=== PATIENT | female | born 1955 | race Caucasian/White ===

== ENCOUNTER → 2017-04-26 | Outpatient (CLI) | payer BC | END | disposition home or self-care (01) | LOC: GMAJ 10:34 | PROVIDERS: ATTEND Family Medicine | DX: E78.00 Pure hypercholesterolemia, unspecified (principal); I10 Essential (primary) hypertension ==

== ENCOUNTER → 2017-08-31 | Outpatient (CLI) | payer BC ==
--- NOTE | 2017-09-01 17:45 | MRI ---
EXAM DESCRIPTION: Lumbar Spine w/o Contrast CLINICAL HISTORY: SPINAL STENOSIS COMPARISON: None Available. TECHNIQUE: Multiplanar multisequence MR imaging of the lumbar spine was performed without contrast FINDINGS: For purposes of this exam, it is assumed that there are five nonrib-bearing lumbar vertebral bodies. There is moderately severe left and moderate right L4-5 neural foraminal narrowing. There is moderate bilateral L5-S1 neural foraminal narrowing. There is moderate bilateral facet joint hypertrophy at L4-5. There is no evidence of acute fracture. The vertebral bodies are normal in configuration and signal. The conus medullaris and filum terminale and cauda equina appear unremarkable. There is no other significant stenosis. No spondylolisthesis or spondylolysis seen. IMPRESSION: No acute abnormalities. Stenoses as above. Electronically signed by: Eagle Petty 09/01/2017 5:44 PM [facility]
== END ==
LOC: MRI 14:24
PROVIDERS: ATTEND Family Medicine
DX: M48.061 Spinal stenosis, lumbar region without neurogenic claudication (principal)

== ENCOUNTER → 2018-05-30 | Outpatient (CLI) | payer BC | LOC: GMAJS 10:46 | PROVIDERS: ATTEND Physician Assistant | DX: R30.0 Dysuria (principal) ==

== ENCOUNTER → 2018-05-31 | Outpatient (CLI) | payer BC ==
--- NOTE | 2018-05-31 11:58 | US ---
EXAM DESCRIPTION: Pelvis Transvaginal CLINICAL HISTORY: 63 years Female, POSTMENOPAUSAL BLEEDING COMPARISON: None. TECHNIQUE: Multiple static transverse and longitudinal sonographic images of the pelvis were obtained transvaginally. FINDINGS: The uterus is anteverted in orientation. It measures 3.8 x 1.6 x 2.6 cm. The endometrial stripe measures 1.2 mm in thickness. Trace fluid is noted in the endometrial canal. A nabothian cyst is noted in the cervix anteriorly. Right ovary is not visualized. Left ovary measures 0.8 x 0.7 x 0.6 cm and appears normal. No evidence of free fluid. IMPRESSION: Trace fluid is noted in the endometrial canal. Otherwise normal sonographic appearance of the uterus and left ovary. Right ovary is not seen. Electronically signed by: Kareen Cochran MD 05/31/2018 11:56 AM CDT
== END ==
LOC: US 10:12
PROVIDERS: ATTEND Physician Assistant
DX: N95.0 Postmenopausal bleeding (principal)

== ENCOUNTER → 2018-11-07 | Outpatient (CLI) | payer BC | LOC: GMAJ 14:27 | PROVIDERS: ATTEND Family Medicine | DX: E55.9 Vitamin D deficiency, unspecified (principal) ==

== ENCOUNTER → 2019-04-22 | Outpatient (CLI) | payer MEDICARE, OTHER ==
--- NOTE | 2019-04-23 13:03 | MRI ---
EXAM DESCRIPTION: Thoracic Spine w/o Contrast: Magnetic Resonance Imaging. CLINICAL HISTORY: SPONDYLOSIS COMPARISON: None. TECHNIQUE: Multiplanar, multiple standard sequences, non contrast MRI, thoracic spine. FINDINGS: No significant disc desiccation or disc space loss at any level. No significant disc bulging. Canal is patent. No hypertrophic facet arthrosis. Bilateral neural foramina are patent. Circumscribed hyperintense T1 and T2 signal in the posterior superior T5 vertebral body consistent with a hemangioma. Similar appearing hemangioma on the left in the T3 vertebral body and anterior left in the T1 vertebral body. Conus terminates at L1. Cord with normal signal, no compression. Paravertebral soft tissues are unremarkable. Normal marrow signal in the remaining vertebral bodies and the posterior elements. Vertebral bodies are not compressed at any level. IMPRESSION: 1. Discs, disc spaces, canal diameter, foraminal diameter, ligaments and facet joints are unremarkable. 2. Normal marrow signal in the spinal elements and normal signal in the cord. Electronically signed by: Eagle Francis MD 04/23/2019 11:32 AM CDT
== END ==
LOC: MRI 13:51
PROVIDERS: ATTEND Anesthesiology Pain Medicine
DX: M47.814 Spondylosis without myelopathy or radiculopathy, thoracic region (principal)

== ENCOUNTER → 2020-01-12 | Outpatient (CLI) | payer MEDICARE, OTHER ==
--- NOTE | 2020-01-12 12:10 | MRI ---
EXAM DESCRIPTION: Lumbar Spine w/o Contrast : Magnetic Resonance Imaging. CLINICAL HISTORY: PAIN IN THORACIC SPINE COMPARISON: MRI scan lumbar spine without contrast August 2017. TECHNIQUE: Multiplanar, multiple standard sequences, non contrast MRI, lumbar spine. FINDINGS: L5-S1: The disc is well visualized on axial T2 series 501, image 3. Normal signal in the disc with disc space preserved. No posterior bulge or protrusion. Minimal hypertrophy of the flavum ligaments and unremarkable facet joints (canal elements. Canal is patent. Mild bilateral foraminal narrowing, more on the right. No interval change. L4-L5: Disc desiccation with disc space preserved and no bulging. Degenerative hypertrophy of the canal elements. Canal and right foramen patent. Moderate to severe narrowing of the left foramen. Stable since the prior study. L3-L4: Disc desiccation with disc space maintained. Canal elements unremarkable. Canal patent. Bilateral foramina are patent. No change from the prior study. L2-L3: Disc desiccation with minimal anterior bulging and anterior endplate ridging. No posterior bulging. Small endplate Schmorl's node superior L3. Canal elements unremarkable. Canal and foramina are patent. No interval change. L1-L2: Normal signal in the disc and disc space preserved. No bulging. Canal elements unremarkable. Canal and foramina are patent. Conus terminates just above the disc space. Stable since the prior study. T12-L1: Normal signal in the disc with disc space preserved. Canal elements are unremarkable. Canal and foramina are patent. No change from the prior study. No significant curvature. Paravertebral soft tissues negative.. Distal cord normal signal and caliber. Otherwise normal marrow signal in the remaining vertebral bodies and the posterior elements. Vertebral bodies are not compressed at any level. IMPRESSION: 1. Desiccation of several discs with degenerative hypertrophy of the canal elements. Endplate changes at several levels. No disc herniation or significant bulging. No canal or foraminal stenosis. 2. Disc desiccation L2-L3 with endplate changes. Canal and foramina are patent. No interval change from the prior study. Electronically signed by: Eagle Francis MD 01/12/2020 12:08 PM CDT
== END ==
LOC: MRI 09:56
PROVIDERS: ATTEND Family Medicine Sports Medicine
DX: M51.36 Other intervertebral disc degeneration, lumbar region (principal); M46.96 Unspecified inflammatory spondylopathy, lumbar region

== ENCOUNTER → 2020-01-13 | Outpatient (CLI) | payer MEDICARE, OTHER ==
--- NOTE | 2020-01-13 11:38 | MRI ---
EXAM DESCRIPTION: Thoracic Spine w/o Contrast: Magnetic Resonance Imaging. CLINICAL HISTORY: PAIN IN THORACIC SPINE COMPARISON: MRI scan lumbar spine January 11. TECHNIQUE: Multiplanar, multiple standard sequences, non contrast MRI, thoracic spine. FINDINGS: Minimal disc space loss at T5-T6 and T6-T7 with desiccation of the discs but no significant bulging. Facet joints unremarkable. Canal and foramina are not stenotic or significantly narrowed. Minimal anterior bulging T11-T12 disc with minimal desiccation. Disc space preserved with no posterior bulging. Facet joints unremarkable with canal and foramina patent. Circumscribed hyperintense T1 and T2 objects in the T5 and T3 vertebral bodies and the T1 vertebral body are consistent with hemangiomas with no vertebral body expansion. There may be a small hemangioma in the T11 vertebral body. Remaining discs demonstrate normal signal. Disc spaces are preserved. Canal and foramina are patent. Facet joints are unremarkable. Conus terminates T12-L1. Cord with normal signal, no compression. No scoliosis. Paravertebral soft tissues are unremarkable. Otherwise normal marrow signal in the remaining vertebral bodies and the posterior elements. Vertebral bodies are not compressed at any level. IMPRESSION: Disc desiccation and minimal disc space loss at several levels. No significant bulging and no herniation. Canal and foramina are patent at these levels. Other discs are unremarkable. No abnormal marrow signal in the thoracic spine segments. Electronically signed by: Eagle Francis MD 01/13/2020 11:37 AM CDT
== END ==
LOC: MRI 10:00
PROVIDERS: ATTEND Family Medicine Sports Medicine
DX: M51.34 Other intervertebral disc degeneration, thoracic region (principal)

== ENCOUNTER → 2020-06-24 | Outpatient (CLI) | payer MEDICARE, OTHER | LOC: GMAJ 11:25 | PROVIDERS: ATTEND Family Medicine | DX: R41.9 Unspecified symptoms and signs involving cognitive functions and awareness (principal); I67.89 Other cerebrovascular disease ==

== ENCOUNTER → 2020-06-25 | Outpatient (CLI) | payer MEDICARE, OTHER ==
--- NOTE | 2020-06-28 08:49 | MRI ---
EXAM DESCRIPTION: Brain w/o Contrast: MRI. CLINICAL HISTORY: UNSPEC. SYMPTOMS AND SIGNS INVOLVING COGNITIVE FUNCTIONS. Difficulties with speech. No history of trauma. No history of radiation. COMPARISON: None. TECHNIQUE: Multiplanar, high-field MRI unit, multiple diffusion sequences, multiple conventional sequences without contrast. FINDINGS: Concordance of the diffusion and non-diffusion sequences with no diffusion restriction. Small foci of bilateral bright FLAIR and T2-weighted signal in the superior periventricular white matter frontal parietal and occipital lobes and minimal involvement of the centrum semiovale and the supraventricular subcortical white matter of all cerebral lobes. Relative sparing of the temporal lobes bilaterally.. Not associated with hemorrhage, no cerebral edema, no midline shift.. However, there are multiple bilateral punctate hypointense lesions on the T2*gradient sequence mostly involving the upper cerebrum with relative sparing of the temporal lobes. Possibly within the cortical sulci. Hypointense on T1 and FLAIR sequence. Not seen in the midbrain or cerebral hemispheres. One of these lesions is much larger than the other lesions in the left occipital lobe. On the standard T2 axial sequence, there are multiple white matter striations, seen as hyperintense linear lines, involving all the cerebral lobes. Less evident on T1 and FLAIR sequences. No focal hyperintense FLAIR signal or hypointense T2*gradient signal in the basal ganglia. The striations are not seen. No hemorrhage, no cerebral edema, no mass-effect normal signal in the brainstem and cerebellar hemispheres. Cortical sulci and subdural spaces are bilaterally symmetrically prominent for patient's age; ventricles, and other CSF spaces are physiologic for patient's age. No effacement or displacement. No midline shift. No extra-axial hemorrhage. Normal flow signal void in the major vessels of the knik Shook, and the venous sinuses. IACs are symmetric bilaterally. Normal signal in the bilateral mastoid air cells. No mass effect in the bilateral cerebellopontine angles. Pituitary gland occupies approximately half of the sella. Base of the cerebellar tonsils is above the foramen magnum. Small air-fluid levels in the bilateral paranasal sinuses. Minimal mucoperiosteal thickening in the anterior ethmoid air cells. The bony calvarium is intact. IMPRESSION: 1. Multiple bilateral microhemorrhages in the cerebral hemispheres with no definite plaque or hemorrhage is in the brainstem or cerebellar hemispheres. Largest lesion is in the left occipital lobe. No prominent asymmetric intra-axial hemorrhage or extra-axial hemorrhage or fluid collection. No diffusion restriction. Unusual bilateral white matter striations involving all of the cerebral lobes. No diffusion restriction. Bilateral small foci of focal white matter abnormalities, usually associated with microvascular disease. Differential for these microhemorrhages and white matter striations includes cerebral amyloid angiopathy, and a nonspecific vasculitis. Diffuse axonal injury unlikely with no history of trauma. 2. Chronic and acute paranasal sinusitis. CRITICAL COMMUNICATION: The critical value was communicated directly by Dr. Francis via phone call, with Dr. Travis Light, at approximately 830 hours, on June 28, 2020. Electronically signed by: Eagle Francis MD 06/28/2020 8:47 AM CDT
== END ==
LOC: MRI 13:46
PROVIDERS: ATTEND Family Medicine
DX: I61.9 Nontraumatic intracerebral hemorrhage, unspecified (principal); J32.9 Chronic sinusitis, unspecified; G93.9 Disorder of brain, unspecified; R90.82 White matter disease, unspecified; R41.9 Unspecified symptoms and signs involving cognitive functions and awareness

== ENCOUNTER → 2020-07-30 | Outpatient (CLI) | payer MEDICARE, OTHER | LOC: LAB.O 08:42 | PROVIDERS: ATTEND Internal Medicine Nephrology | DX: N18.4 Chronic kidney disease, stage 4 (severe) (principal) ==